=== PATIENT | male | born 1975 | race African-American/Black ===

== ENCOUNTER 2016-12-04 15:50 | Emergency (ER) | payer BC ==
[~2016-12-04] VITALS: Ht 172.7 cm; Wt 52.0 kg
[2016-12-05] MEDS ORDERED: LORAZEPAM 1MG TABLET PO ONE (00:15)
[2016-12-05] MEDS ORDERED: DEXAMETHASONE 10 MG/ML VIAL IM ONE (00:15)
[2016-12-05 00:23] LABS: BASOPHILS % 0.4 % (0.0-2.0); EOSINOPHILS % 0.6 % (0.0-5.0); HEMATOCRIT. 29.4 % (42.0-52.0); HEMOGLOBIN. 9.5 g/dL (14.0-18.0); LYMPHOCYTES % 32.5 % (20.0-50.0); MEAN CORPUSCULAR HEMOGLOBIN 28.4 pg (28.0-32.0); MEAN CORPUSCULAR VOLUME 87.7 fL (80.0-94.0); MEAN PLATELET VOLUME 8.8 fl (7.4-10.4); MONOCYTES % 11.5 % (2.0-8.0); PLATELET 69 x1000/uL (130-400); RED BLOOD CELL COUNT 3.35 mill/uL (4.7-6.1); RED CELL DISTRIBUTION WIDTH 18.6 % (11.6-14.6)
[2016-12-05 00:28] LABS: CHLORIDE 115 mEq/L (98-107)
[2016-12-05 00:34] LABS: CARBON DIOXIDE 18 mEq/L (21-32)
[2016-12-05] MEDS ORDERED: IOHEXOL-300 100 ML BOTTLE ONE (01:43)
[2016-12-05 04:37] VITALS: BP 107/63
== END 2016-12-05 04:40 | disposition home or self-care (01) ==
LOC: ER 16:30
DX: K04.7 Periapical abscess without sinus (principal); M54.5 Low back pain; R19.7 Diarrhea, unspecified
CPT/HCPCS: 36415; 70491; 71010; 80048; 85025; 96372; 99285; J1100; Q9967

== ENCOUNTER 2020-01-14 11:21 | Emergency (ER) | payer BC ==
[~2020-01-14] VITALS: Ht 177.8 cm; Wt 67.0 kg
[2020-01-14 11:45] VITALS: BP 124/86
== END 2020-01-14 11:55 | disposition home or self-care (01) ==
LOC: ER 11:28
DX: S80.02XA Contusion of left knee, initial encounter (principal); M25.462 Effusion, left knee; M25.562 Pain in left knee; B20 Human immunodeficiency virus [HIV] disease; W01.0XXA Fall on same level from slipping, tripping and stumbling without subsequent striking against object, initial encounter; Y93.9 Activity, unspecified; Y92.9 Unspecified place or not applicable
CPT/HCPCS: 99281

== ENCOUNTER 2022-08-16 09:12 | Emergency (ER) | payer BC ==
[~2022-08-16] VITALS: Ht 175.3 cm; Wt 63.0 kg
[2022-08-16 09:21] VITALS: BP 148/101; PULSE 119; RESP 20; TEMP 98.4; O2SAT 96
[2022-08-16] MEDS ORDERED: HYDROCODONE/ACETAMINOPHEN 5/325MG TABLET PO ONE (11:00)
[2022-08-16] MEDS ORDERED: SODIUM CHLORIDE 0.9% 1,000 ML IV ONE (11:00)
[2022-08-16 11:26] LABS: BASOPHILS % 0.2 % (0.0-2.0); EOSINOPHILS % 0.7 % (0.0-5.0); HEMATOCRIT. 46.9 % (42.0-52.0); LYMPHOCYTES % 16.2 % (20.0-50.0); MEAN CORPUSCULAR HEMOGLOBIN 25.9 pg (28.0-32.0); MEAN CORPUSCULAR VOLUME 80.9 fL (80.0-94.0); MEAN PLATELET VOLUME 7.2 fl (7.4-10.4); MONOCYTES % 10.3 % (2.0-8.0); NEUTROPHILS % 72.6 % (40.0-76.0); PLATELET 157 x1000/uL (130-400); RED CELL DISTRIBUTION WIDTH 15.3 % (11.6-14.6)
[2022-08-16 11:35] LABS: CHLORIDE 105 mEq/L (98-107)
[2022-08-16] MEDS ORDERED: IBUP-2029 MT (13:08)
[2022-08-16] MEDS ORDERED: LIDO700A15 TP (13:08)
[2022-08-16] MEDS ORDERED: HYDR-4009 MT (13:08)
[2022-08-16] MEDS ORDERED: IOHEXOL-300 100 ML BOTTLE ONE (13:09)
== END 2022-08-16 13:20 | disposition home or self-care (01) ==
LOC: ER 09:12
DX: M84.40XA Pathological fracture, unspecified site, initial encounter for fracture (principal); M54.6 Pain in thoracic spine
CPT/HCPCS: 99285; 71260; 80053; 85025; 84484; 36415; 74177; 93005; Q9967; J7030